=== PATIENT | male | born 1980 | race Caucasian/White ===

== ENCOUNTER 2019-09-10 11:14 | Outpatient (CLI) | payer OTHER ==
--- NOTE | 2019-09-10 16:04 | PET ---
PET CT: 09/10/19 HISTORY: 39-year-old male with classical Hodgkin's lymphoma, nodular sclerosis diagnosed on a left cervical ly mph node biopsy on 08/31/2019. Exam is requested for initial staging. TECHNIQUE: PET scan with CT attenuation correction was performed from the vertex through the proximal thighs fol lowing the intravenous administration of 10.4 millicuries of 15-fluorodeoxyglucose in the right antec ubital fossa. COMPARISON: None. CORRELATION: CT neck and chest dated 08/27/2019. FINDINGS: There is hypermetabolic activity in the left supraclavicular lymph nodes (SUV 8.5), right paratrachea l (SUV 4.6) and anterior superior mediastinum (SUV 7). No vishal hypermetabolism is seen in the right cervical, either hilar, axillary, or abdominopelvic or inguinal lymph nodes. No hypermetabolic pulmonary nodules, liver, adrenal, or skeletal lesions are seen. There is physiologic activity in the GI and tracts and brain. The CT scan used for attenuation correction demonstrates no evidence of pleural effusion or ascites. IMPRESSION: Findings consistent with viable lymphoma above the level of the diaphragm (Deauville 5). POS: [facility]
== END 2019-09-10 11:15 | disposition home or self-care (01) ==
LOC: PET 11:14
PROVIDERS: ATTEND Internal Medicine Hematology & Oncology
DX: C81.91 Hodgkin lymphoma, unspecified, lymph nodes of head, face, and neck (principal)
CPT/HCPCS: 78815; A9552

== ENCOUNTER 2019-09-18 09:49 | Day surgery (SDC) | payer OTHER ==
[2019-09-17 11:53] VITALS: BMI 27.3
[2019-09-18] MEDS ORDERED: Midazolam HCl 2 mg/2 ml Vial ONE (10:52)
[2019-09-18] MEDS ORDERED: Fentanyl 100 MCG/2 ML VIAL ONE (10:52)
[2019-09-18] MEDS ORDERED: Bupivacaine 0.25% HCL 30 ML VIAL ONE (11:07)
[2019-09-18] MEDS ORDERED: Lidocaine 1% w/Epinephrine 1:100K 20 ML VIAL ONE (11:07)
[2019-09-18] MEDS ORDERED: PROPOFOL 200 MG/20 ML VIAL ONE (11:20)
[2019-09-18] MEDS ORDERED: Lidocaine 1% PF 5 ML VIAL ONE (11:20)
--- NOTE | 2019-09-18 14:29 | RAD ---
RADIOGRAPH CHEST 1 VIEW: 09/18/19 HISTORY: 39-year-old male status post central line placement. FINDINGS: There are no air space densities, pulmonary edema, pneumothorax, or cardiomegaly. The lateral costop hrenic angles are sharp. There is an implantable vascular access port which loops vertically in the r ight neck, then vertically descends such that distal tip overlies the expected location of the SVC. IMPRESSION: 1. No acute cardiopulmonary findings. 2. Right sided implantable vascular access port placement without pneumothorax. jn [] POS: [facility]
--- NOTE | 2019-09-18 19:20 | OP ---
DATE OF PROCEDURE: 09/18/2019 PREOPERATIVE DIAGNOSIS: Hodgkin lymphoma. POSTOPERATIVE DIAGNOSIS: Hodgkin lymphoma. PROCEDURE PERFORMED: Tunneled central line with subcutaneous port (MediPort right internal jugular access site, CT injectable). ANESTHESIA: General. ESTIMATED BLOOD LOSS: Minimal. COMPLICATIONS: None. SPECIMEN: None. FINDINGS: Tip of the catheter was at the atriocaval junction. DESCRIPTION OF PROCEDURE: The patient was taken to the operating room and laid supine on the operating room table. After general anesthetic was obtained, bilateral neck and chest were shaved, prepped, and draped in a sterile fashion. Local anesthetic was infiltrated over the right internal jugular vein. Internal jugular vein was cannulated using a 22-gauge finder needle followed by a Seldinger needle. Wire was passed into superior vena cava under fluoro guidance. A small zander was made at the wire entry site. A separate 3 cm incision was made in the right upper chest. Subcutaneous pocket was made below the lower incision, tubing for the MediPort, tunneled from the inferior to superior incision. An introducer sheath was placed over the wire into the superior vena cava under fluoro guidance. The dilator and wire were removed. The end of the catheter was sewed into the sheath. The sheath was peeled away. The tip of the catheter was at the atriocaval junction. MediPort tubing was cut to fit the MediPort at the lower incision, connected to the MediPort. The MediPort was sewn to the chest wall in the subcutaneous pocket using Prolene. The wounds were irrigated and closed using 3-0 Vicryl, 4-0 Monocryl, and Dermabond. The MediPort was accessed and flushed with a heparin flush. The patient was sent to Recovery in stable condition. All instrument counts, needle counts, and lap counts were correct. Job ID: [id number]
== END 2019-09-18 14:10 | disposition home or self-care (01) ==
LOC: SDC 09:49
PROVIDERS: ATTEND Surgery
PROC: B518ZZA Fluoroscopy of Superior Vena Cava, Guidance (ICD-10-PCS; principal; 2019-09-18)
PROC: 02HV33Z Insertion of Infusion Device into Superior Vena Cava, Percutaneous Approach (ICD-10-PCS; principal; 2019-09-18)
DX: C81.90 Hodgkin lymphoma, unspecified, unspecified site (principal); F17.220 Nicotine dependence, chewing tobacco, uncomplicated
CPT/HCPCS: 71045; C1788; J0690; J1642; J2001; J2250; J2704; J3010; S0020

== ENCOUNTER 2019-11-20 08:31 | Outpatient (CLI) | payer OTHER ==
--- NOTE | 2019-11-20 10:31 | PET ---
PET SCAN WITH CT ATTENUATION CORRECTION: COMPARISON: 09/10/2019. HISTORY: Hodgkin's lymphoma. TECHNIQUE: PET scan with CT attenuation correction is performed from the base of the brain through the proximal thighs following the intravenous administration of 12.0 mCi of [id number]. FINDINGS: Head and neck: No abnormal FDG activity. Chest: Previously noted FDG activity in the left supraclavicular region, mediastinum are no longer ev ident. There is no abnormal FDG activity in the chest, or axilla. CT used for attenuation correction demonstrates dependent atelectatic changes. Abdomen and pelvis: No abnormal FDG activity. There is no mesenteric, retroperitoneal hypermetabolic lymphadenopathy. No evidence of hypermetabolic lymph nodes along either iliac chain. Osseous structures: There is no abnormal FDG activity. IMPRESSION: 1. Complete response to therapy. Previously noted hypermetabolic activity is no longer evident. 2. Deauville score is 1. No uptake. Transcribed Date/Time: 11/20/2019 10:34 AM
== END 2019-11-20 08:32 | disposition home or self-care (01) ==
LOC: PET 08:31
PROVIDERS: ATTEND Internal Medicine Hematology & Oncology
DX: C81.90 Hodgkin lymphoma, unspecified, unspecified site (principal)
CPT/HCPCS: 78815; A9552

== ENCOUNTER 2020-02-09 11:00 | Outpatient (CLI) | payer OTHER ==
--- NOTE | 2020-02-09 13:54 | PET ---
PET CT: 02/09/20 HISTORY: 39-year-old male with Hodgkin's lymphoma, status post chemo and radiation therapy which ended in December 2019. Patient was diagnosed with classical Hodgkin's lymphoma, nodular sclerosing type on a left cerv ical lymph node biopsy of 08/31/2019. COMPARISON: 11/20/2019. TECHNIQUE: PET scan with CT attenuation correction was performed from the vertex through the proximal thighs fol lowing the intravenous administration of 12 millicuries of 15-fluorodeoxyglucose in the right antecub ital fossa. FINDINGS: There is physiologic activity in the brain, GI and tracts and heart. No vishal metabolism is seen in the neck, chest, axillae, abdomen, pelvis or inguinal regions. No hypermetabolic pulmonary nodules, liver, adrenal or skeletal lesions are seen. The CT scan used for attenuation correction demonstrates no evidence of pleural effusions or ascites. IMPRESSION: No evidence of viable lymphoma (Deauville score I). POS: [facility]
== END 2020-02-09 11:01 ==
LOC: PET 11:00
PROVIDERS: ATTEND Internal Medicine Hematology & Oncology
DX: C81.91 Hodgkin lymphoma, unspecified, lymph nodes of head, face, and neck (principal)
CPT/HCPCS: 78815; A9552

== ENCOUNTER 2020-11-18 09:02 | Outpatient (CLI) | payer OTHER ==
[2020-11-18] MEDS ORDERED: Iopamidol 370 76% 100 ML VIAL ONE (09:35)
== END 2020-11-18 09:03 | disposition home or self-care (01) ==
LOC: BICCT 09:02
PROVIDERS: ATTEND Internal Medicine Hematology & Oncology
DX: C81.91 Hodgkin lymphoma, unspecified, lymph nodes of head, face, and neck (principal); R59.0 Localized enlarged lymph nodes; R91.8 Other nonspecific abnormal finding of lung field
CPT/HCPCS: 70491; 71260; Q9967